=== PATIENT | male | born 1995 | race Caucasian/White ===

== ENCOUNTER 2024-12-29 17:10 | Emergency (ER) | payer OTHER ==
[~2024-12-29] VITALS: Ht 180.3 cm; Wt 80.0 kg
[2024-12-29 17:38] VITALS: BP 119/80; PULSE 67; RESP 18; TEMP 98.1; O2SAT 100
[2024-12-29] MEDS ORDERED: BUPR1TAB46 SL (17:45)
== END 2024-12-29 19:47 | disposition left against medical advice (07) ==
LOC: EMS 17:10
DX: S00.83XA Contusion of other part of head, initial encounter (principal); S10.93XA Contusion of unspecified part of neck, initial encounter; T71.161A Asphyxiation due to hanging, accidental, initial encounter; T14.91XA Suicide attempt, initial encounter; Z79.891 Long term (current) use of opiate analgesic; Z53.29 Procedure and treatment not carried out because of patient's decision for other reasons; X58.XXXA Exposure to other specified factors, initial encounter; Y93.89 Activity, other specified; Y92.89 Other specified places as the place of occurrence of the external cause; Y99.8 Other external cause status
CPT/HCPCS: 99283; Z7502